=== PATIENT | female | born 1970 | race American Indian/Alaskan Native ===

== ENCOUNTER 2020-02-29 11:41 | Outpatient (CLI) | payer BC ==
--- NOTE | 2020-02-29 13:55 | Cat Scan Report ---
CT lower extremity RT wo con INDICATION: PAIN IN RIGHT KNEE PATELLA FX. TECHNIQUE: All CT scans at this location are performed using CT dose reduction for ALARA by means of automated e xposure control. COMPARISON: None available. FINDINGS: No fracture or dislocation is seen within the right knee. Enthesopathic changes are seen along the [place] perior and lateral portions of the patella. There is a small amount of fluid within the prepatellar b ursa. Joint spaces well-preserved. No intrinsic osseous lesion. IMPRESSION: 1. Prepatellar bursitis. 2. No CT evidence for right knee or patellar fracture Signer Name: Jag Pepper MD Signed: 02/29/2020 1:51 PM Workstation Name: [id number]
== END 2020-02-29 11:42 | disposition home or self-care (01) ==
LOC: CT 11:41
PROVIDERS: ATTEND Orthopaedic Surgery
DX: M25.461 Effusion, right knee (principal)

== ENCOUNTER 2020-07-21 08:50 | Emergency (ER) | payer BC, OTHER ==
[2020-07-21 09:00] VITALS: BP 153/89
[2020-07-21] MEDS ORDERED: KETOROLAC 60 MG/2 ML INJ IM ONE (09:06)
[2020-07-21] MEDS ORDERED: predniSONE 20 MG TAB PO ONE (09:06)
--- NOTE | 2020-07-21 09:38 | XRay Report ---
CERVICAL SPINE 4 VIEWS INDICATION / CLINICAL INFORMATION: Neck pain. COMPARISON: None available. FINDINGS: VERTEBRAE: No fracture. No significant malalignment. DISC SPACES:Mild discogenic degenerative disease C6-7 PREVERTEBRAL SOFT TISSUES:No significant abnormality. ADDITIONAL FINDINGS: None. IMPRESSION: 1. No significant abnormality. Signer Name: Jag Pepper MD Signed: 07/21/2020 9:34 AM Workstation Name: [id number]
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
== END 2020-07-21 15:56 | disposition home or self-care (01) ==
LOC: ED 08:50
DX: S16.1XXA Strain of muscle, fascia and tendon at neck level, initial encounter (principal); I10 Essential (primary) hypertension; Z98.51 Tubal ligation status; Z79.899 Other long term (current) drug therapy; X58.XXXA Exposure to other specified factors, initial encounter; Y93.89 Activity, other specified; Y92.89 Other specified places as the place of occurrence of the external cause; Y99.8 Other external cause status
CPT/HCPCS: 72040; 96372; 99283; J1885; J7512